=== PATIENT | female | born 1965 | race Caucasian/White ===

== ENCOUNTER → 2017-03-06 | Outpatient (CLI) | payer OTHER | LOC: MAMMO 15:48 | PROVIDERS: ATTEND Family Medicine | DX: Z12.31 Encounter for screening mammogram for malignant neoplasm of breast (principal) | CPT/HCPCS: G0202; G0279 ==

== ENCOUNTER → 2017-03-27 | Outpatient (CLI) | payer OTHER ==
--- NOTE | 2017-03-28 17:26 | MAM ---
EXAM DESCRIPTION: 3D Diagnostic, Left CLINICAL HISTORY: 52 yearsFemaleABNORMAL MAMMO. Architectural distortion left breast. COMPARISON: Targeted left breast ultrasound on this visit. Digital bilateral screening 3-D tomosynthesis on 03/06/2017. TECHNIQUE: Digital diagnostic left breast 3-D tomosynthesis CC and LM projections. Digital 2-D spot compression middle third lateral left breast LM and CC projections. CAD was utilized. FINDINGS: Architectural distortion is less evident with spot compression on the 2-D images. Minimal focal asymmetry lateral left breast, middle third, on the 3-D tomosynthesis planar images. Heterogeneous fatty and fibroglandular tissues are noted in the region of interest at the 300 clock position of the left breast, from 9 cm to 19 cm from the nipple. Questionable hypoechoic tissue with parallel orientation and no posterior features was seen in the radial transducer orientation, 13 cm from the nipple, but not with antiradial orientation of the transducer. No discrete solid mass or cyst. No dominant calcification or parenchymal edema. IMPRESSION: BI-RADS CATEGORY: 3 - PROBABLY BENIGN FINDING - Short Interval Follow-Up Suggested FOLLOW-UP: Short-interval (6-month) follow-up surveillance digital 3-D tomosynthesis left breast. The results and follow-up were discussed in person with the patient. Communication explaining the results and followup will be mailed to the patient and referring care provider. Electronically signed by: Richie Regalado MD 03/28/2017 5:25 PM CDT Workstation: [id number]
--- NOTE | 2017-03-28 17:30 | US ---
EXAM DESCRIPTION: Breast,Left ultrasound. CLINICAL HISTORY: 52 yearsFemaleABNORMAL MAMMO COMPARISON: Digital diagnostic 3-D tomosynthesis left breast today. Bilateral screening 3-D tomosynthesis 03/06/2017. TECHNIQUE: Transcutaneous scanning of the lateral middle third and posterior third left breast utilizing two-dimensional and Doppler modes. Scanning performed by the specialty trimmer and Dr. Regalado. FINDINGS: Heterogeneous fatty and fibroglandular tissues are noted in the region of interest at the 300 clock position of the left breast, from 9 cm to 19 cm from the nipple. Questionable hypoechoic tissue with parallel orientation and no posterior features was seen in the radial transducer orientation, 13 cm from the nipple, but not with antiradial orientation of the transducer. No discrete solid mass or cyst. No dominant calcification or parenchymal edema. IMPRESSION: 1. BiRads Category 3: Probably Benign Findings. Please refer to digital diagnostic 3-D tomosynthesis examination and report of the left breast today. The findings and the follow-up plan were reviewed in person with the patient after the examination. Electronically signed by: Richie Regalado MD 03/28/2017 5:29 PM CDT Workstation: [id number]
== END | disposition home or self-care (01) ==
LOC: MAMMO 15:30
PROVIDERS: ATTEND Family Medicine
DX: Z12.31 Encounter for screening mammogram for malignant neoplasm of breast (principal)
CPT/HCPCS: 76641; G0279

== ENCOUNTER 2017-04-11 14:18 | Emergency (ER) | payer SELFPAY ==
[2017-04-11 15:00] VITALS: TEMP 98.6
[2017-04-11] MEDS ORDERED: MAGNESIUM SULFATE INJ 1 GM in SODIUM CHLORIDE 0.9% 100ML 100 ML IVPB ONE (16:01)
[2017-04-11] MEDS ORDERED: SODIUM CHLORIDE 0.9% (FLUSH) 10 ML SYG IV PRN (16:01)
--- NOTE | 2017-04-11 16:22 | ED.PDOC ---
History of Present Illness - General Chief Complaint: Headache Stated Complaint: Headache with hypertension Time Seen by Provider: 04/11/17 15:56 Source: patient Exam Limitations: no limitations - History of Present Illness Initial Comments: PT REPORTS ONSET OF HEADACHE THIS AM THAT IS DIFFERENT FROM MIGRAINE HEADACHES EXPERIENCED IN THE PAST. PT REPORTS ASSOCIATED PHOTOPHOBIA. SHE REPORTS A SIMILAR HEADACHE LAST WEEK THAT RESOLVED AFTER HER PCP ADMINISTERED MAGNESIUM IV. PT IS REQUESTING MAGNESIUM TODAY FOR HEADACHE IN LIEU OF PAIN MEDICATION. PT ALSO REQUESTS CT OF HEAD SINCE TODAYS HEADACHE FEELS DIFFERENT. Timing/Duration: 4-6 hours, constant Quality: moderate Head Injury Location: frontal, occipital Recent Head Trauma: no recent headache/trauma, chronic headaches Improving Factors: nothing Worsening Factors: other - LIGHT Allergies/Adverse Reactions: Allergies NO KNOWN ALLERGY Allergy (Verified 04/11/17 14:47) Home Medications: Ambulatory Orders Amrwiuevzzxrr-Zkgu-Edbyvpvkjx [Fioricet] 1 - 2 ea PO Q6HR PRN #20 tab 04/11/17 HYDROcodone 7.5MG/APAP 325MG [[place] 7.5/325] 1 ea PO Q8HR PRN 04/11/17 Ibuprofen 800 mg PO Q8HR PRN #30 tab 04/11/17 Oxcarbazepine [Trileptal] 300 mg PO BID 04/11/17 Review of Systems - Review of Systems Constitutional: Denies: chills, fever EENTM: Denies: eye pain, blurred vision, nose congestion Respiratory: Denies: cough, short of breath Cardiology: Denies: chest pain, palpitations Gastrointestinal/Abdominal: Denies: nausea, vomiting Musculoskeletal: Denies: back pain, joint swelling Skin: Denies: change in color, dryness Neurological: States: see HPI, headache. Denies: numbness, paresthesia Endocrine: States: no symptoms reported Hematologic/Lymphatic: States: no symptoms reported Past Medical History (General) - Patient Medical History Hx Stroke: No Hx Congestive Heart Failure: No Hx Diabetes: No Hx Cancer: Yes - Cervical Hx Hepatitis C: No Surgical History: noncontributory - Vaccination History Hx Tetanus, Diphtheria Vaccination: No Hx Influenza Vaccination: No Hx Pneumococcal Vaccination: No - Social History Hx Tobacco Use: No Hx Chewing Tobacco Use: No Hx Alcohol Use: No Hx Substance Use: No Hx Substance Use Treatment: No Hx Depression: No Feels Threatened In Home Enviroment: No Feels Threatened In a Relationship: No Hx Physical Abuse: No Hx Emotional Abuse: No Hx Suspected Abuse: No - Female History Patient is a Female of Child Bearing Age (10 -59 yrs old): Yes Patient : No Family Medical History - Family History Grandparents Family History: Unknown Physical Exam - Physical Exam General Appearance: Alert, Obvious distress, Obese Eyes, Ears, Nose, Throat Exam: PERRL/EOMI Neck: non-tender, full range of motion, supple, normal inspection Cardiovascular/Chest: regular rate, rhythm, no murmur Respiratory: lungs clear, normal breath sounds, no respiratory distress Gastrointestinal/Abdominal: non tender, soft Back Exam: no CVA tenderness Extremity: normal inspection, no pedal edema 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 PTS BP REMAINS ELEVATED. PT HAS BEEN INSTRUCTED TO FOLLOW UP WITH PCP IN REGARDS TO THIS. - Results/Orders Results/Orders: 04/11/17 16:01 Sodium Chloride 0.9% (Flush) [Saline Flush Syringe] 10 ml IV PRN PRN URINALYSIS Stat 04/11/17 17:51 Nmilmnyyztims-Mofb-Snkthvnxjo [Fioricet] 2 ea PO Q6H PRN Laboratory Results - last 24 hr 04/11/17 04/11/17 04/11/17 16:39 16:39 16:39 WBC 9.4 RBC 4.63 Hgb 14.2 Hct 41.9 MCV 90.4 MCH 30.6 MCHC 33.8 RDW 13.4 Plt Count 204 MPV 8.3 Absolute Neuts (auto) 6.00 Absolute Lymphs (auto) 2.40 Absolute Monos (auto) 0.70 Absolute Eos (auto) 0.10 Absolute Basos (auto) 0.10 Neutrophils % 64.2 Lymphocytes % 25.9 Monocytes % 7.9 Eosinophils % 1.1 Basophils % 0.9 Sodium 138 Potassium 4.1 Chloride 104 Carbon Dioxide 25 Anion Gap 13.1 BUN 13 Creatinine 0.55 L BUN/Creatinine Ratio 23.6 H Random Glucose 94 Serum Osmolality 275.5 Calcium 9.5 Magnesium 2.2 Total Bilirubin 0.8 Direct Bilirubin 0.1 Indirect Bilirubin 0.7 AST 62 H ALT 69 H Alkaline Phosphatase 96 Serum Total Protein 7.4 Albumin 4.3 - EKG/XRAY/CT CT Ordered: Yes - HEAD: NO ACUTE FINDINGS PER RAD CT Interpretation Call Back: No Departure - Departure Clinical Impression: Migraine, Hypertension Time of Disposition: 18:32 Disposition: Discharge to Home or Self Care Condition: Good Departure Forms: ED Discharge - Pt. Copy, Patient Portal Self Enrollment Instructions: DI for Migraine, High Blood Pressure Referrals: Candy David DO [Primary Care Provider] - 1-2 Weeks Prescriptions: Cqljysuunyehu-Kjiv-Uvnalrojoj [Fioricet] 1 - 2 ea PO Q6HR PRN #20 tab PRN Reason: Headache/Migraine Pain Ibuprofen 800 mg PO Q8HR PRN #30 tab PRN Reason: Pain Home Medications: Ambulatory Orders Knpduxsjhfize-Nwlw-Nxqwnjbklj [Fioricet] 1 - 2 ea PO Q6HR PRN #20 tab 04/11/17 HYDROcodone 7.5MG/APAP 325MG [[place] 7.5/325] 1 ea PO Q8HR PRN 04/11/17 Ibuprofen 800 mg PO Q8HR PRN #30 tab 04/11/17 Oxcarbazepine [Trileptal] 300 mg PO BID 04/11/17
[2017-04-11] MEDS ORDERED: MAGNESIUM SULFATE INJ 1 GM/2 ML VIAL ONE (16:41)
[2017-04-11] MEDS ORDERED: SODIUM CHLORIDE 0.9% 100ML 100 ML IVPB ONE (16:42)
--- NOTE | 2017-04-11 17:30 | CT ---
EXAM: Head CLINICAL INDICATION: 52-year-old female with headache. COMPARISON: None. TECHNIQUE: CT brain without contrast. This exam was performed according to our departmental dose optimization program which includes use of automated exposure control, adjustment of the mA and/or kV according to patient size and/or use of iterative reconstruction technique. FINDINGS: The ventricles, sulci, and cisterns are within normal limits. The bauer-white matter differentiation is preserved. Incidentally noted subcentimeter focus of hypoattenuation present at the level of the RIGHT caudate head suggesting sequela of prior lacunar infarction. There is no mass effect, midline shift, intra- or extra-axial fluid collection/acute hemorrhage. The osseous structures are unremarkable. The paranasal sinuses reveal LEFT maxillary sinus dependent focus of frothy fluid suggesting secretions otherwise the remaining paranasal sinuses and mastoid air cells are clear. IMPRESSION: No acute intracranial abnormalities. Electronically signed by: Nica Myles MD 04/11/2017 5:29 PM CDT Workstation: [id number]
[2017-04-11] MEDS ORDERED: PROMETHAZINE HCL INJ 12.5 MG in SODIUM CHLORIDE 0.9% 50ML 50 ML IVPB ONE (17:50)
[2017-04-11] MEDS ORDERED: KETOROLAC TROMETHAMINE INJ 30 MG/ML VIAL IV ONE (17:50)
[2017-04-11] MEDS ORDERED: ACETAMINOPHEN-CAFF-BUTALBITAL 1 EA TAB PO PRN (17:51)
[2017-04-11] MEDS ORDERED: PROMETHAZINE HCL INJ 25 MG/ML VIAL ONE (17:58)
[2017-04-11] MEDS ORDERED: SODIUM CHLORIDE 0.9% 50ML 50 ML ONE (17:59)
[2017-04-11 19:00] VITALS: BP 141/90
[2017-04-11 19:01] VITALS: O2SAT 97
== END 2017-04-11 19:01 | disposition home or self-care (01) ==
LOC: ER 14:18
DX: G43.909 Migraine, unspecified, not intractable, without status migrainosus (principal); I10 Essential (primary) hypertension; Z85.41 Personal history of malignant neoplasm of cervix uteri
CPT/HCPCS: 36415; 70450; 80048; 80076; 83735; 85025; A4216; J1885; J2550; J3475; J7050

== ENCOUNTER → 2017-11-13 | Outpatient (CLI) | payer SELFPAY ==
--- NOTE | 2017-11-14 16:44 | US ---
EXAM DESCRIPTION: Breast,Left: Ultrasound CLINICAL HISTORY: 52 yearsFemaleABN MAMMO COMPARISON: Digital 3-D tomosynthesis diagnostic mammography left breast on the same visit. TECHNIQUE: Transcutaneous scanning of the left breast utilizing two-dimensional and Doppler modes. Scanning performed by the cutch cleaner and Dr. Regalado. FINDINGS: Scanning at the 300 clock position of the left breast 9 cm from the nipple. Heterogeneous fibroglandular and fatty tissues are noted. No distinct solid mass or cyst. No parenchymal edema or calcifications. No skin changes. Scanning at the 700 clock position of the left breast where patient palpates a mass. No mass was palpable. Heterogeneous fibroglandular and fatty tissues are noted. No distinct solid mass or cyst. No parenchymal edema or calcifications. No skin changes. IMPRESSION: 1. Bi-Rads Category 2: Benign. 2. Please refer to 3-D tomosynthesis left breast diagnostic mammographic examination and report on this visit. The FINDINGS and the FOLLOW-UP plan were reviewed in person with the patient after the examination. Written communication explaining the IMPRESSION and FOLLOW-UP will be mailed to the patient and referring care provider. Electronically signed by: Richie Regalado MD 11/14/2017 4:43 PM CDT
--- NOTE | 2017-11-16 09:17 | MAM ---
EXAM DESCRIPTION: 3D Diagnostic, Left: Digital Mammography CLINICAL HISTORY: 52 yearsFemale6 M/FU nodule in the skin are under the skin inferior to the left breast.. Follow-up lateral left breast finding. Currently on HRT. Premenopausal. COMPARISON: 3-D tomosynthesis left breast 03/27/2017.. Targeted left breast ultrasound following this examination. Reports from prior examinations also reviewed. TECHNIQUE: Left breast CC LM MLO projection full-field images, 3-D tomosynthesis digital mammographic technique. Also left breast synthesized CC MLO LM full-field images. CAD not utilized. FINDINGS: Left breast parenchymal density pattern is: Scattered areas of fibroglandular density. No skin thickening or nipple retraction scattered microcalcifications and coarse calcifications with no groups. Questionable focal asymmetry again seen at the middle third of the lateral left breast approximately 300 clock position. Skin marker placed at the 700 clock position where the breast joints and chest wall where patient palpates a mass. No mammographic abnormality.. No focal, stellate mass or density, focal asymmetry , and no suspicious microcalcifications left breast. ULTRASOUND: Scanning at the 300 clock position of the left breast 9 cm from the nipple. Heterogeneous fibroglandular and fatty tissues are noted. No distinct solid mass or cyst. No parenchymal edema or calcifications. No skin changes. Scanning at the 700 clock position of the left breast where patient palpates a mass. No mass was palpable. Heterogeneous fibroglandular and fatty tissues are noted. No distinct solid mass or cyst. No parenchymal edema or calcifications. No skin changes. IMPRESSION: BI-RADS CATEGORY: 2 - BENIGN FINDINGS. FOLLOW UP: Return to routine digital bilateral screening, February 2018 to include one year follow-up of the right breast. The FINDINGS and the FOLLOW-UP plan were reviewed in person with the patient after the examination. Written communication explaining the IMPRESSION and FOLLOW-UP will be mailed to the patient and referring care provider. According to the [employer], yearly mammograms are recommended starting at age 40 and continuing as long as a woman is in good health. Any breast change noted on a breast self-exam should be reported promptly to the patient's healthcare provider. Breast MRI is recommended for women with an approximately 20-25% or greater lifetime risk of breast cancer, including women with a strong family history of breast or ovarian cancer and women who have been treated for Hodgkin's disease. A negative mammographic report should not delay tissue diagnosis in patients with significant clinical history or physical findings. Extremely dense breast tissue limits the sensitivity of digital mammography. Electronically signed by: Richie Regalado MD 11/16/2017 9:16 AM CDT
== END ==
LOC: US 13:30
PROVIDERS: ATTEND Family Medicine
DX: R92.8 Other abnormal and inconclusive findings on diagnostic imaging of breast (principal)
CPT/HCPCS: 76641; 77065; G0279